=== PATIENT | male | born 1950 | race Caucasian/White ===

== ENCOUNTER → 2024-10-24 11:46 | Outpatient (REF) | payer MEDICARE, BC, OTHER, SELFPAY | LOC: HWRAD 11:46 | PROVIDERS: ATTENDING PHYSICIAN Internal Medicine Critical Care Medicine; FAMILY PHYSICIAN Family Medicine | DX: R06.09 Other forms of dyspnea (principal) | CPT/HCPCS: 71046 ==

== ENCOUNTER → 2025-06-19 13:23 | Outpatient (REF) | payer MEDICARE, BC, OTHER, SELFPAY | LOC: REG 13:23 | DX: M25.561 Pain in right knee (principal) | CPT/HCPCS: 73564 ==